=== PATIENT | male | born 1965 ===

== ENCOUNTER 2016-12-22 13:14 | Observation (INO) | payer OTHER ==
[~2016-12-22] VITALS: Ht 177.8 cm; Wt 112.2 kg
[2016-12-22] VITALS (10 sets, daily range): BP systolic 151–175; BP diastolic 83–102; PULSE 64–103; RESP 16–23; TEMP 98.3–98.6; O2SAT 93–95
[~2016-12-22 13:14] MED LIST: ANTISOL30 LEFT EAR; CORTIS10A LEFT EAR; DIAB1.25 PO; LISIPOW XX; METF-324 PO; METO25 PO
[2016-12-22] MEDS ORDERED: HYDR-3516 PO (13:44)
[2016-12-22] MEDS ORDERED: METF1000 PO (13:44)
[2016-12-22] MEDS ORDERED: GLIP10TA6 PO (13:44)
[2016-12-22] MEDS ORDERED: AMLO10TA2 PO (13:44)
[2016-12-22] MEDS ORDERED: METF500T PO (13:44)
[2016-12-22] MEDS ORDERED: RANI150T PO (13:44)
[2016-12-22] MEDS ORDERED: GLIP5TAB8 PO (13:44)
[2016-12-22] MEDS ORDERED: LOSA50TA PO (13:44)
[2016-12-22] MEDS ORDERED: AMOX500T2 PO (13:44)
[2016-12-22] MEDS ORDERED: ATOR10TA15 PO (13:44)
[2016-12-22] MEDS ORDERED: SITA1TAB2 PO (13:44)
[2016-12-22] MEDS ORDERED: RESP: ALBUTEROL 2.5 MG/IPRATROPIUM 0.5 MG NEB (SCH) INH ONE (14:15)
--- NOTE | 2016-12-22 14:18 | PD ---
HPI Chief Complaint: Respiratory Symptoms Time Seen by Provider: 13:58 Travel History International Travel<30 days: No Contact w/Intl Traveler<30days: No Traveled to known affect area: No History of Present Illness HPI 51-year-old male complains of chest discomfort and shortness of breath. Patient states the symptoms started last night. Patient states that he has heaviness across the chest wall and shortness of breath started last night. Patient states that the chest discomfort is better today however he still feeling anterior chest discomfort now. Patient states that he has history of reactive airway disease and has been using albuterol inhaler at home. Patient denies any coughing congestion fever chills. Patient denies any history of CAD. Patient has history hypertension, diabetes, hyperlipidemia. Patient is a smoker. PFSH Past Medical History Cardiovascular Problems: Yes (HTN) High Cholesterol: Yes Diabetes: Yes Patient Takes Glucophage: Yes Hypertension: Yes Social History Alcohol Use: Yes Tobacco Use: Yes Substance Use: No Allergies-Medications (Allergen,Severity, Reaction): Coded Allergies: No Known Allergies (Unverified , 12/22/16) Reported Meds & Prescriptions Reported Meds & Active Scripts Active Reported Amoxicillin-Clavulanate 500-125 mg Tab 500 Mg PO TID Januvia (Sitagliptin Phosphate) 100 Mg Tab 100 Mg PO DAILY Hydrocodone-Acetaminophen 5-325 mg Tab 1 Tab PO Q4H PRN Losartan (Losartan Potassium) 50 Mg Tab 50 Mg PO DAILY Atorvastatin (Atorvastatin Calcium) 10 Mg Tab Unknown Dose PO HS Amlodipine (Amlodipine Besylate) 10 Mg Tab 10 Mg PO DAILY Metformin (Metformin HCl) 500 Mg Tab 500 Mg PO HS With a meal Metformin (Metformin HCl) 1,000 Mg Tab 1,000 Mg PO DAILY With a meal Glipizide 5 Mg Tab 5 Mg PO HS Take 30 minutes before a meal Glipizide 10 Mg Tab 10 Mg PO DAILY Take 30 minutes before a meal Ranitidine (Ranitidine HCl) 150 Mg Tab 150 Mg PO BID Review of Systems General / Constitutional: No: Fever Eyes: No: Visual changes HENT: No: Headaches Cardiovascular: Positive: Chest Pain or Discomfort Respiratory: Positive: Shortness of Breath Gastrointestinal: No: Abdominal Pain Genitourinary: No: Dysuria Musculoskeletal: No: Pain Skin: No Rash Neurologic: No: Weakness Psychiatric: No: Depression Endocrine: No: Polydipsia Hematologic/Lymphatic: No: Easy Bruising Physical Exam Narrative GENERAL: Well-nourished, well-developed patient. SKIN: Focused skin assessment warm/dry. HEAD: Normocephalic. EYES: No scleral icterus. No injection or drainage. NECK: Supple, trachea midline. No JVD or lymphadenopathy. CARDIOVASCULAR: Regular rate and rhythm without murmurs, gallops, or rubs. RESPIRATORY: Breath sounds equal bilaterally. No accessory muscle use. GASTROINTESTINAL: Abdomen soft, non-tender, nondistended. MUSCULOSKELETAL: No cyanosis, or edema. BACK: Nontender without obvious deformity. No CVA tenderness. Neurologic exam normal. Data Data Last Documented VS Vital Signs Date Time Temp Pulse Resp B/P Pulse Ox O2 Delivery O2 Flow Rate FiO2 12/22/16 14:14 95 12/22/16 13:28 98.3 101 20 156/102 Orders Electrocardiogram (12/22/16 14:03) Complete Blood Count With Diff (12/22/16 14:03) Comprehensive Metabolic Panel (12/22/16 14:03) Creatine Kinase (Cpk) (12/22/16 14:03) Troponin I (12/22/16 14:03) B-Type Natriuretic Peptide (12/22/16 14:03) Prothrombin Time / Inr (Pt) (12/22/16 14:03) Act Partial Throm Time (Ptt) (12/22/16 14:03) Chest, Single Ap (12/22/16 14:03) Iv Access Insert/Monitor (12/22/16 14:03) Ecg Monitoring (12/22/16 14:03) Oximetry (12/22/16 14:03) Albuterol-Ipratropium Neb (Duoneb Neb) (12/22/16 14:15) Aspirin (Aspirin) (12/22/16 14:30) Labs Laboratory Tests Test 12/22/16 14:10 White Blood Count 10.6 TH/MM3 Red Blood Count 3.92 MIL/MM3 Hemoglobin 11.6 GM/DL Hematocrit 35.2 % Mean Corpuscular Volume 89.8 FL Mean Corpuscular Hemoglobin 29.5 PG Mean Corpuscular Hemoglobin 32.9 % Concent Red Cell Distribution Width 13.4 % Platelet Count 294 TH/MM3 Mean Platelet Volume 7.6 FL Neutrophils (%) (Auto) 70.8 % Lymphocytes (%) (Auto) 21.1 % Monocytes (%) (Auto) 5.5 % Eosinophils (%) (Auto) 0.9 % Basophils (%) (Auto) 1.7 % Neutrophils # (Auto) 7.5 TH/MM3 Lymphocytes # (Auto) 2.2 TH/MM3 Monocytes # (Auto) 0.6 TH/MM3 Eosinophils # (Auto) 0.1 TH/MM3 Basophils # (Auto) 0.2 TH/MM3 CBC Comment AUTO DIFF Differential Comment AUTO DIFF CONFIRMED Prothrombin Time 10.5 SEC Prothromb Time International 1.0 RATIO Ratio Activated Partial 28.0 SEC Thromboplast Time Sodium Level 143 MEQ/L Potassium Level 4.1 MEQ/L Chloride Level 108 MEQ/L Carbon Dioxide Level 26.5 MEQ/L Anion Gap 9 MEQ/L Blood Urea Nitrogen 9 MG/DL Creatinine 1.00 MG/DL Estimat Glomerular Filtration 79 ML/MIN Rate Random Glucose 194 MG/DL Calcium Level 8.5 MG/DL Total Bilirubin 0.5 MG/DL Aspartate Amino Transf 16 U/L (AST/SGOT) Alanine Aminotransferase 23 U/L (ALT/SGPT) Alkaline Phosphatase 112 U/L Total Creatine Kinase 67 U/L Troponin I 0.04 NG/ML B-Type Natriuretic Peptide 247 PG/ML Total Protein 6.1 GM/DL Albumin 3.0 GM/DL [facility] Medical Decision Making Medical Screen Exam Complete: Yes Emergency Medical Condition: Yes Interpretation(s) 1418 p.m. EKG shows sinus rhythm with left bundle-branch block. 15:24 PM. CBC WBC 10.6. Hemoglobin 11.6 hematocrit 35.2. Normal differential. CMP within normal limit. Glucose 194. Cardiac enzymes are normal. BNP 247. Differential Diagnosis Differential diagnosis including acute exacerbation of reactive airway disease, bronchitis, pneumonia, PE, pneumothorax, angina, CA. Narrative Course 51-year-old male with chest discomfort and shortness of breath since last night. Albuterol with Atrovent unit dose treatment times one. Aspirin 325 mg by mouth given. Patient will be admitted to the chest pain center. Diagnosis Primary Impression: Chest pain Qualified Code: R07.9 - Chest pain, unspecified type Additional Impression: Reactive airway disease Qualified Code: J45.20 - Reactive airway disease, mild intermittent, uncomplicated Admitting Information Admitting Physician Requests: Observation Doroteo Villafana MD Dec 22, 2016 14:18
[2016-12-22 14:23] LABS: AUTOMATED NEUTROPHIL # 7.5 TH/MM3 (1.8-7.7); BASOPHIL # 0.2 TH/MM3 (0-0.2); BASOPHIL % 1.7 % (0.0-2.0); EOSINOPHIL # 0.1 TH/MM3 (0-0.4); EOSINOPHIL % 0.9 % (0.0-4.0); HEMATOCRIT 35.2 % (39.0-51.0); LYMPH % 21.1 % (9.0-44.0); LYMPHOCYTE # 2.2 TH/MM3 (1.0-4.8); MEAN CELL VOLUME 89.8 FL (80.0-100.0); MEAN CORPUSCULAR HEMOGLOBIN 29.5 PG (27.0-34.0); MEAN CORPUSCULAR HGB CONC 32.9 % (32.0-36.0); MONO % 5.5 % (0.0-8.0); NEUT % 70.8 % (16.0-70.0); PLATELET COUNT 294 TH/MM3 (150-450); RED BLOOD COUNT 3.92 MIL/MM3 (4.50-5.90); RED CELL DISTRIBUTION WIDTH 13.4 % (11.6-17.2); WHITE BLOOD COUNT 10.6 TH/MM3 (4.0-11.0)
[2016-12-22 14:30] LABS: CHLORIDE 108 MEQ/L (98-107); POTASSIUM 4.1 MEQ/L (3.5-5.1); SODIUM (NA) 143 MEQ/L (136-145)
[2016-12-22] MEDS ORDERED: ASPIRIN 325 MG TAB PO ONE (14:30)
[2016-12-22 14:34] LABS: ANION GAP 9 MEQ/L (5-15); BICARBONATE 26.5 MEQ/L (21.0-32.0); BLOOD UREA NITROGEN 9 MG/DL (7-18)
[2016-12-22 14:35] LABS: HEMO FLAGS AUTO DIFF
[2016-12-22 14:37] LABS: ALT (GPT) 23 U/L (12-78); AST (GOT) 16 U/L (15-37); GLOMERULAR FILTRATION RATE 79 ML/MIN (>89)
[2016-12-22 14:39] LABS: TOTAL BILIRUBIN ADULT 0.5 MG/DL (0.2-1.0)
[2016-12-22 14:40] LABS: ALKALINE PHOSPHATASE 112 U/L (45-117)
[2016-12-22 14:42] LABS: CREATINE KINASE 67 U/L (39-308)
[2016-12-22 14:43] LABS: PROTHROMBIN TIME - PATIENT 10.5 SEC (9.8-11.6)
[2016-12-22 15:12] LABS: SCAN/DIFF AUTO DIFF CONFIRMED
--- NOTE | 2016-12-22 15:22 | RADRPT ---
EXAM DATE/TIME: 12/22/2016 14:23 [facility] COMPARISON: No previous studies available for comparison. INDICATIONS : Short of breath MEDICAL HISTORY : None. SURGICAL HISTORY : None. ENCOUNTER: Initial ACUITY: 2 days PAIN SCORE: 0/10 LOCATION: Bilateral chest FINDINGS: Mild basilar and dependent density probably atelectasis. No effusion. No pneumothorax the heart size upper limits normal. No acute bony abnormality. CONCLUSION: 1. Minimal basilar atelectasis. Dilan Clark MD on December 22, 2016 at 15:19 Board Certified Radiologist. This report was verified electronically.
[2016-12-22] MEDS ORDERED: SODIUM CHLORIDE 0.9% FLUSH 10 ML FLUSH IV FLUSH PRN ×2 (15:45→16:00)
[2016-12-22] MEDS ORDERED: ACETAMINOPHEN 500 MG CPLT PO PRN (15:45)
[2016-12-22] MEDS ORDERED: ONDANSETRON HCL 4 MG/2 ML VIAL IV PRN (15:45)
[2016-12-22] MEDS ORDERED: NALOXONE HCL 0.4 MG/ML AMP IV PRN (16:00)
[2016-12-22] MEDS ORDERED: BISACODYL 10 MG SUPP RECTAL PRN (16:00)
[2016-12-22] MEDS ORDERED: SENNOSIDES 8.6 MG TAB PO PRN (16:00)
[2016-12-22] MEDS ORDERED: ACETAMINOPHEN 325 MG TAB PO PRN (16:00)
[2016-12-22] MEDS ORDERED: RESP: ALBUTEROL 2.5 MG/IPRATROPIUM 0.5 MG NEB (PRN) NEB (16:00)
[2016-12-22] MEDS ORDERED: MAGNESIUM HYDROXIDE SUSP 30 ML CUP PO PRN (16:00)
[2016-12-22] MEDS ORDERED: LACTULOSE SYRUP 20 GM/30 ML CUP PO PRN (16:00)
[2016-12-22] MEDS ORDERED: FUROSEMIDE 20 MG/2 ML VIAL IV PUSH ONE (16:45)
--- NOTE | 2016-12-22 16:46 | HHI.HP ---
[facility] Isaias LazaroFrancisMau Baldwin MD Admission Diagnosis chest pain. Reactive airway disease. Diagnoses: Chief Complaint: Shortness of breath Travel History International Travel<30 Days: No Contact w/Intl Traveler <30 Da: No Traveled to Known Affected Are: No History of Present Illness Mr. Pink is a pleasant 51-year-old male with a history of diabetes mellitus, hypertension, hyperlipidemia who presents to the emergency department today due to shortness of breath. Last night he could not sleep due to orthopnea. Patient sat in his recliner and slept a lot. He denies any chest pain, nausea or vomiting. Also denies any diaphoresis. Denies any cough, fever or chills. No changes in bowel or bladder habits. On arrival temperature 98.3 pulse 101-lead 64, respiration 20 pressure 156/102. Chest x-ray shows minimal bibasilar atelectasis. EKG shows left bundle branch block which according to patient is likely an old finding. Patient was referred to cardiology by his primary care doctor. He canceled cardiology appointment due to his recent oral surgery. He plans to follow up with cardiology in the outpatient setting. Review of Systems Except as stated in HPI: all other systems reviewed are Neg Past Family Social History Past Medical History Hypertension Hyperlipidemia Diabetes mellitus COPD Past Surgical History No major surgery in the past Reported Medications Amoxicillin-Clavulanate 500-125 mg Tab 500 Mg PO TID Januvia (Sitagliptin Phosphate) 100 Mg Tab 100 Mg PO DAILY Hydrocodone-Acetaminophen 5-325 mg Tab 1 Tab PO Q4H PRN Losartan (Losartan Potassium) 50 Mg Tab 50 Mg PO DAILY Atorvastatin (Atorvastatin Calcium) 10 Mg Tab Unknown Dose PO HS Amlodipine (Amlodipine Besylate) 10 Mg Tab 10 Mg PO DAILY Metformin (Metformin HCl) 500 Mg Tab 500 Mg PO HS With a meal Metformin (Metformin HCl) 1,000 Mg Tab 1,000 Mg PO DAILY With a meal Glipizide 5 Mg Tab 5 Mg PO HS Take 30 minutes before a meal Glipizide 10 Mg Tab 10 Mg PO DAILY Take 30 minutes before a meal Ranitidine (Ranitidine HCl) 150 Mg Tab 150 Mg PO BID Allergies: Coded Allergies: No Known Allergies (Unverified , 12/22/16) Family History Mother and brother - DM, HTN. Brother has cancer not sure what type of cancer. Social History Patient continues to smoke 1 pack per week. Drinks socially and denies any illicit drugs. Physical Exam Vital Signs Vital Signs Date Time Temp Pulse Resp B/P Pulse Ox O2 Delivery O2 Flow Rate FiO2 12/22/16 16:25 64 20 164/83 95 12/22/16 14:14 95 12/22/16 13:28 98.3 101 20 156/102 95 Physical Exam GENERAL: This is a well-nourished, well-developed patient, in no apparent distress. SKIN: No rashes, ecchymoses or lesions. Warm and dry. HEAD: Atraumatic. Normocephalic. No temporal or scalp tenderness. EYES: Pupils equal round and reactive. No injection or drainage. ENT: Nose without bleeding, purulent drainage or septal hematoma. Airway patent. NECK: Trachea midline. No lymphadenopathy. Supple, nontender, no meningeal signs. CARDIOVASCULAR: Regular rate and rhythm without murmurs, gallops, or rubs. No JVD. RESPIRATORY: Clear to auscultation. Breath sounds equal bilaterally. Bibasilar crackles. GASTROINTESTINAL: Abdomen soft, non-tender, nondistended. No guarding. MUSCULOSKELETAL: Extremities without clubbing, cyanosis. Trace edema bilaterally. NEUROLOGICAL: Awake and alert. Cranial nerves II through XII intact. No focal neurological deficits. Normal speech. Laboratory Laboratory Tests Test 12/22/16 14:10 White Blood Count 10.6 Red Blood Count 3.92 Hemoglobin 11.6 Hematocrit 35.2 Mean Corpuscular Volume 89.8 Mean Corpuscular Hemoglobin 29.5 Mean Corpuscular Hemoglobin 32.9 Concent Red Cell Distribution Width 13.4 Platelet Count 294 Mean Platelet Volume 7.6 Neutrophils (%) (Auto) 70.8 Lymphocytes (%) (Auto) 21.1 Monocytes (%) (Auto) 5.5 Eosinophils (%) (Auto) 0.9 Basophils (%) (Auto) 1.7 Neutrophils # (Auto) 7.5 Lymphocytes # (Auto) 2.2 Monocytes # (Auto) 0.6 Eosinophils # (Auto) 0.1 Basophils # (Auto) 0.2 CBC Comment AUTO DIFF Differential Comment AUTO DIFF CONFIRMED Prothrombin Time 10.5 Prothromb Time International 1.0 Ratio Activated Partial 28.0 Thromboplast Time Sodium Level 143 Potassium Level 4.1 Chloride Level 108 Carbon Dioxide Level 26.5 Anion Gap 9 Blood Urea Nitrogen 9 Creatinine 1.00 Estimat Glomerular Filtration 79 Rate Random Glucose 194 Calcium Level 8.5 Total Bilirubin 0.5 Aspartate Amino Transf 16 (AST/SGOT) Alanine Aminotransferase 23 (ALT/SGPT) Alkaline Phosphatase 112 Total Creatine Kinase 67 Troponin I 0.04 B-Type Natriuretic Peptide 247 Total Protein 6.1 Albumin 3.0 Result Diagram: 12/22/16 1410 12/22/16 1410 Imaging Last Impressions Chest X-Ray 12/22/16 1403 Signed Impressions: Service Date/Time: Thursday, December 22, 2016 14:23 - CONCLUSION: 1. Minimal basilar atelectasis. Dilan Clark MD Assessment and Plan Problem List: (1) Dyspnea ICD Code: R06.00 Status: Acute (2) Diabetes mellitus ICD Code: E11.9 Status: Acute (3) Hypertension ICD Code: I10 Status: Acute (4) Hyperlipidemia ICD Code: E78.5 Status: Acute (5) Tobacco abuse ICD Code: Z72.0 Status: Acute Assessment and Plan Mr. Pink is a pleasant 51-year-old male with a history of hypertension, hyperlipidemia, diabetes mellitus who presents to the emergency department due to orthopnea that started last night. Patient denies any chest pain, nausea vomiting or diaphoresis. He was referred to a strategic sourcing manager in the outpatient setting by his primary care physician. Patient plans to follow-up with primary care as well as cardiology in the outpatient setting. - Dyspnea - Possibly due to congestive heart failure. - Currently patient is hemodynamically stable. BNP 247. - EKG shows left bundle branch block which is likely old according to patient. - Will administer Lasix 20 mg IV. - Will start patient on Torsemide 10mg Qday. - Recommended patient to follow up with Cardiology and to obtain an echocardiogram. - Diabetes mellitus - Hypertension - Hyperlipidemia - Patient will likely be discharged later this evening. - If patient stays in the hospital, we will continue his home medications, losartan 50 mg, amlodipine 10 mg, atorvastatin 10 mg. - Continue metformin upon discharge. Full code. Lovenox. Discharge patient to home Condition on discharge: Improved Heart healthy, diabetic Diet as tolerated Ad Juliana activity Rx written: Torsemide 10mg Qday. KCL 10meQ Qday. Follow-up with primary care physician within one week and Cardiology within 1 week. Nile Carver DO Dec 22, 2016 16:46
[2016-12-22] MEDS ORDERED: TORS10TA2 PO (16:48)
[2016-12-22] MEDS ORDERED: K-TA10TA PO (16:48)
[2016-12-22] MEDS ORDERED: ENOXAPARIN SODIUM 40 MG/0.4 ML SYRINGE SQ SCH (17:00)
[2016-12-22] MEDS ORDERED: DOCUSATE SODIUM 50 MG/SENNA 8.6 MG TAB PO SCH (21:00)
[2016-12-22] MEDS ORDERED: SODIUM CHLORIDE 0.9% FLUSH 10 ML FLUSH IV FLUSH SCH ×2 (21:00)
--- NOTE | 2016-12-23 14:52 | EKG ---
Date Performed: 12/22/2016 Time Performed: 17:28:07 PTAGE: 51 years EKG: Sinus rhythm LEFT BUNDLE BRANCH BLOCK Since previous tracing, no significant change noted ABNORMAL ECG PREVIOUS TRACING : 12/22/2016 14.13 DOCTOR: Monico Miller Interpretating Date/Time 12/23/2016 14:51:33
--- NOTE | 2016-12-23 14:52 | EKG ---
Date Performed: 12/22/2016 Time Performed: 14:13:51 PTAGE: 51 years EKG: Sinus rhythm MARKED RIGHT AXIS DEVIATION LEFT BUNDLE BRANCH BLOCK ABNORMAL ECG NO PREVIOUS TRACING DOCTOR: Monico Miller Interpretating Date/Time 12/23/2016 14:51:22
--- NOTE | 2016-12-23 14:52 | EKG ---
Date Performed: 12/22/2016 Time Performed: 20:04:27 PTAGE: 51 years EKG: SINUS TACHYCARDIA INDETERMINATE AXIS LEFT BUNDLE BRANCH BLOCK Since previous tracing, no si gnificant change noted ABNORMAL ECG PREVIOUS TRACING : 12/22/2016 17.28 DOCTOR: Monico Miller Interpretating Date/Time 12/23/2016 14:51:44
== END 2016-12-22 21:55 | disposition home or self-care (01) ==
LOC: PHEFT 13:14 → PHEDA 15:32 → UNDOADMOB 15:32 → PHEDA 17:47 → PHICU 17:47 → UNDODISOB 21:55
PROVIDERS: ADMIT Hospitalist; ATTEND Hospitalist
DX: R06.00 Dyspnea, unspecified (principal); R06.01 Orthopnea; R06.02 Shortness of breath; I44.7 Left bundle-branch block, unspecified; R07.89 Other chest pain; R94.31 Abnormal electrocardiogram [ECG] [EKG]; R00.0 Tachycardia, unspecified; I10 Essential (primary) hypertension; E11.9 Type 2 diabetes mellitus without complications; E78.5 Hyperlipidemia, unspecified; E78.00 Pure hypercholesterolemia, unspecified; J44.9 Chronic obstructive pulmonary disease, unspecified; J45.20 Mild intermittent asthma, uncomplicated; F17.200 Nicotine dependence, unspecified, uncomplicated; Z79.899 Other long term (current) drug therapy; Z79.84 Long term (current) use of oral hypoglycemic drugs
CPT/HCPCS: 71010; 80053; 82550; 83880; 84484; 85025; 85610; 85730; 93005; 94150; 94640; 94664; 99285; G0378; J1650; J1940